=== PATIENT | female | born 1980 | race Caucasian/White ===

== ENCOUNTER 2018-12-19 19:51 | Emergency (ER) | payer MEDICARE, MEDICAID ==
[~2018-12-19] VITALS: Ht 162.6 cm; Wt 66.2 kg
[~2018-12-19 19:51] MED LIST: ALPR-624 PO; ARMO250T4; BUPR150T6 PO; BUSP10TA11 PO; COL100C PO; DIAZ-351 PO; DIAZ2TAB PO; DIPH-423 PO; GLAT20KI3 SQ; HCTZ25T PO; LEVA15HF4 IH; LYR25C PO; META800T87 PO; MOT200T PO; NEOM10SO4 RIGHT EAR; NITR-60 PO; ONDA4TAB59 PO; OXYC-150 PO; OXYC40TA39 PO; PANT40TA39 PO; PHEN-786 PO; POTA20TA19 PO; PRED20TA PO; ZOF4T PO; [UNRECOGNIZED DRUG - CODE] PO
[2018-12-19 19:59] VITALS: BP 164/105
[2018-12-19] MEDS ORDERED: ketorolac trometh inj. 60 MG/2 ML VIAL IM ONE (21:00)
== END 2018-12-19 22:19 | disposition home or self-care (01) ==
LOC: ER 19:53
DX: R51 Headache (principal); M54.2 Cervicalgia; G89.29 Other chronic pain; J45.909 Unspecified asthma, uncomplicated; G35 Multiple sclerosis; F17.210 Nicotine dependence, cigarettes, uncomplicated; Z98.890 Other specified postprocedural states; Z88.8 Allergy status to other drugs, medicaments and biological substances; Z88.5 Allergy status to narcotic agent; Z79.899 Other long term (current) drug therapy; Z56.0 Unemployment, unspecified
CPT/HCPCS: 70450; 96372; 99284; J1885